=== PATIENT | male | born 1995 | race Caucasian/White ===

== ENCOUNTER 2016-09-17 19:00 | Emergency (ER) | payer BC, OTHER ==
[2016-09-17 19:13] VITALS: BP 123/67; PULSE 74; RESP 16; TEMP 98.3; O2SAT 97
[2016-09-17] MEDS ORDERED: LETS SOLN TOPICAL 1 EA SYR TP ONE (19:29)
--- NOTE | 2016-09-17 19:41 | UCPHY ---
H & P Time Seen by Provider: 09/17/16 19:09 Patient Type: Established HPI/ROS: 21-year-old male presents complaining of right forehead/scalp laceration after hitting his head on a clothing rack at work. He denies loss of consciousness, no nausea no vomiting. Review of systems General no fever no chills no weakness HEENT no eye pain no eye discharge. No eye redness, no sore throat Respiratory no cough, no shortness of breath Cardiac no chest pain, no peripheral edema GI no abdominal pain, no diarrhea, no constipation, no nausea, no vomiting no flank pain, no hematuria, no dysuria Musculoskeletal no myalgias, no joint pain Heme no easy bruising, no easy bleeding Endo no polyuria, no polydipsia Skin no rashes, no pruritus Neuro no syncope, no dizziness, no headaches Psych is no suicidal ideation, no homicidal ideation Past Medical/Surgical History: Depression Social History: no alchol or drug use Smoking Status: Former smoker Physical Exam: 21-year-old male alert and oriented no acute distress nontoxic appearance Normocephalic, right frontal scalp with 3 cm linear laceration non gaping Pupils reactive Extraocular muscles intact Neck supple no meningismus Lungs clear to auscultation bilaterally Heart regular rate and rhythm without murmur rub or gallop Abdomen nondistended normoactive bowel sounds soft nontender Back no CVA tenderness, no step-offs, no spinal tenderness Extremities no cyanosis clubbing or edema Neuro alert and oriented, no focal deficits Constitutional: Initial Vital Signs Temperature (C) 36.8 C 09/17/16 19:11 Heart Rate 74 09/17/16 19:11 Respiratory Rate 16 09/17/16 19:11 Blood Pressure 123/67 H 09/17/16 19:11 O2 Sat (%) 97 09/17/16 19:11 O2 Delivery Mode Room Air Allergies/Adverse Reactions: No Known Allergies Allergy (Unverified 11/28/15 22:25) Home Medications: Medication Instructions Recorded Lexapro 09/17/16 traZODone 09/17/16 Medical Decision Making Procedures: Procedure note-laceration The wound was irrigated with copious amounts of saline. Lidocaine 1% was used for local anesthetic. 6 x yevgeniy placed. Patient tolerated procedure well. ED Course/Re-evaluation: Patient seen and evaluated for scalp laceration Impression Minor scalp laceration Plan Staple repair Departure - Departure Disposition: Home, Routine, Self-Care Clinical Impression: Scalp laceration Instructions: Staple Care (ED), Laceration (ED) Additional Instructions: Return in 8-10 days for staple removal. [place],. [Primary Care Provider] - As per Instructions - PQRS PQRS Measurement: na
== END 2016-09-17 20:08 | disposition home or self-care (01) ==
LOC: CED 19:00
PROC: 0HQ0XZZ Repair Scalp Skin, External Approach (ICD-10-PCS; principal; 2016-09-17)
DX: S01.01XA Laceration without foreign body of scalp, initial encounter (principal); W22.8XXA Striking against or struck by other objects, initial encounter
CPT/HCPCS: 99213-PO; G0463-PO

== ENCOUNTER → 2017-07-12 | Outpatient (CLI) | payer BC | LOC: BRMIMAGING 15:02 | PROVIDERS: ATTEND Family Medicine | DX: R07.89 Other chest pain (principal) | CPT/HCPCS: 71020-PO ==